=== PATIENT | male | born 1935 | race Caucasian/White ===

== ENCOUNTER 2024-11-29 19:00 | Emergency (ER) | payer MEDICARE, MEDICAID, SELFPAY ==
--- NOTE | ~2024-11-29 | CT_ITS ---
CLINICAL HISTORY: Stroke Protocol CT angiography head and neck with contrast. 3D Postprocessing. 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 Scattered calcified atheromatous plaques throughout the bilateral common carotid arteries. Prominent calcified and noncalcified atheromatous plaque in the carotid bifurcations, on the right resulting in severe greater than 70% stenoses and on the left mild less than 50% stenoses. Short segmental moderate stenoses left distal common carotid artery. Cervical vasculature is patent. Cerebral arteries are patent. No intracranial aneurysms. The visualized thyroid gland is unremarkable. No cervical mass or fluid collection. Mild mucosal thickening left maxillary sinus. Tiny bilateral pulmonary nodules measuring no more than 3 mm. Per Fleischner criteria: Low-risk patients: No routine follow-up required. High-risk patients: Optional CT at 12 months. Multilevel spondylosis with osteophytosis, uncovertebral hypertrophy, facet arthropathy and degenerative disc disease. Motion and streak artifact limit evaluation. Redemonstrated scattered punctate calcifications throughout the right cerebrum with diffuse edema and multifocal masslike lesions, please see prior report. IMPRESSION: No large vessel occlusion. If clinical concern persists consider follow-up MRI. Patent neck CTA. Severe stenoses right carotid bifurcation. This document has been electronically signed by: Alex Garner MD on 11/29/2024 20:18:08
--- NOTE | ~2024-11-29 | CT_ITS ---
CLINICAL HISTORY: Stroke Protocol CT head without contrast Comparison: None provided Findings: Motion and streak artifact limit evaluation. Scattered subcortical and periventricular hypoattenuation, likely in keeping with chronic small vessel ischemic disease. Parenchymal volume loss with compensatory prominence of the ventricles and CSF spaces. Heterogeneous 2 cm solid-appearing mass lesion right parietal lobe. Cystic low-density focus measuring 6.4 x 5.4 cm trans axially in the right frontal lobe extending along the gangliocapsular region. Associated mass effect with leftward midline shift measuring 5 mm at the septum pellucidum. No hydrocephalus at this time. There is diffuse vasogenic edema throughout the right cerebrum. Additional focus of either evolving ischemia or encephalomalacia posterior right frontal lobe near the vertex not well-defined. Regional scattered calcifications which are nonspecific. 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 Superimposed ischemia can not be entirely excluded. Clinical correlation with follow-up brain MRI without and with contrast advised. The visualized paranasal sinuses and mastoid air cells are normal. Possible tiny osteoma in the right frontal sinus. The orbits are unremarkable. There is no acute fracture. IMPRESSION: Masslike foci throughout the right cerebrum with mass effect described, please see above. This document has been electronically signed by: Alex Garner MD on 11/29/2024 19:43:01
--- NOTE | 2024-11-29 19:05 | ECG_ITS ---
Test Reason : ? STROKE Blood Pressure : */* mmHG Vent. Rate : 82 BPM Atrial Rate : 82 BPM P-R Int : 130 ms QRS Dur : 92 ms QT Int : 392 ms P-R-T Axes : 73 -36 66 degrees QTcB Int : 457 ms Sinus rhythm with occasional Premature ventricular complexes Left axis deviation Abnormal ECG No previous ECGs available Referred By: Adrian Arias Electronically Signed By: Jules Hollis
[2024-11-29 19:10] LABS: Prothrombin Time Whole Bld POC 13.9 sec (11.1-13.5); ~PT, ~INR - Anti Coag Clinic 1.2 (0.9-1.1)
--- NOTE | 2024-11-29 19:15 | ED.NEUROSD ---
HPI - Neuro Symptoms/Deficit General Chief Complaint: Stroke Stated Complaint: STROKE ALERT Time Seen by Provider: 11/29/24 19:04 Source: patient, family (Tesha Rodas (HCP) lise @ [phone].), EMS and old records reviewed Mode of arrival: EMS Limitations: altered mental status History of Present Illness ED Provider: DR. Arias HPI Narrative: This is a 89-year-old male with PMHx dementia, schizophrenia, BPH, HLD, CAD, HTN, patient is custodial resident, on able to give a full history at this point, came in for evaluation of left facial droop, slurred speech, left side weakness. History was obtained from his HCP/niece Tesha Rodas at phone number [phone] who confirmed that she visited her uncle on 11/21 noticed that he has left-sided facial droop and slurred speech and left-sided weakness, noticed that he can not use his left side then the knees witnessed focal seizure to his left side only claimed that she notified the staff but no action was taken at this point, HCP not sure his code status never discussed it with him and does not want to make decision now. patient returned today for the above symptoms claiming that is symptoms is worsening since 15:00. Patient on arrival is slurred speech able to answer some questions, with left-sided weakness. Related Data Allergies Allergy/AdvReac Type Severity Reaction Status Date / Time No Known Allergies Allergy Verified 11/29/24 19:27 Review of Systems Review of Systems: Yes Unobtainable due to mental status PMFSH Social History Social History Smoked in Last 30 Days: No Use of substances other than those prescribed or required for medical reasons: No Advance Directives: Yes Advance Directives on File: Yes Advance Directives Date on File: 11/29/24 Do you have a plan to hurt others: No Plan Physical Exam Vital Signs: Vital Signs: Last Vital Signs Temp 98.0 F 11/29/24 19:24 Pulse 66 11/29/24 20:13 Resp 16 11/29/24 20:13 BP 153/69 H 11/29/24 20:13 Pulse Ox 96 11/29/24 20:13 O2 Del Method Room Air 11/29/24 20:13 BMI result Body Mass Index 25.1 Vital signs have been reviewed and appear to be correct. Blood pressure elevated. Heart rate normal. Respiratory rate normal. Temperature normal. Oxygen saturation normal. Appearance: Alert. Oriented X2 (person and place) No acute distress. Head: Normal external exam. Normocephalic. Atraumatic. No Schwartz signs noted. No raccoon eyes noted Eyes: PERRLA. EOMI. Conjunctiva and sclera normal. Eyelids normal. ENT: TM's Normal. Pharynx normal. Uvula midline. Moist mucous membranes. No trismus noted. No drooling noted. No muffled voice noted. Neck: Normal inspection. Neck supple. FROM. No adenopathy. Thyroid Normal. No meningeal signs. No neck mass noted. CVS: Normal heart rate and rhythm. Heart sound normal. No murmurs noted. Pulses normal throughout. Respiratory: No respiratory distress. Painless inspiration. Breath sounds normal. No wheezes/rales/rhonchi noted. Chest nontender. No accessory muscle usage noted or decreased air movement noted. Abdomen: Soft and nontender. Bowel sounds normal in all 4 quadrants. No distention noted. No organomegaly noted. No visible injury noted. Back: No CVA tenderness. Full range of motion noted. Skin: Skin warm and dry. Normal skin color. Normal skin turgor. No rashes/lesions/lacerations noted. Extremities: No lower extremity edema. Extremities exhibit normal range of motion. Extremities nontender. Neuro: Left facial droop, slurred speech, left upper extremity pronator drift, left lower extremity weakness. Course Reevaluation(s) Reevaluation #1: 89-year-old male came in for evaluation of left hemiparesis, left facial droop, and witnessed focal left-sided seizure by his least [address] is revealing right frontal intra parenchymal mass with mild shift to the left side, patient otherwise hemodynamically stable, patient will need neurosurgical service for further evaluation case was discussed with [facility] neurosurgeon coverage PA. Perdomo who declined the transfer because patient is stable and [facility] is closed for transfer. Case discussed with [facility] accepted to ED of the main [place] [facility] by Dr. Doll. I spoke with Tesha rodas/his healthcare proxy who approved the transferred to [facility]. Time: 21:13 Medications Administered Discontinued Medications Generic Name Dose Route Start Last Admin Trade Name Amilcar PRN Reason Stop Dose Admin Iohexol 100 ml 11/29/24 19:25 11/29/24 19:26 Iohexol 350 Mg/Ml 100 Ml Infus..Btl IV 11/29/24 19:26 70 ml ONCE ONE Administration Medical Decision Making Differential Diagnosis Differential Diagnoses: The differential diagnosis associated with the presentation includes (Hemorrhagic stroke, ischemic stroke, intraparenchymal mass, electrolyte derangement, severe anemia.) Admission/Observation Consideration of admission/observation: Escalation of care including admission/observation considered Lab Data MDM Lab Attestation statement: I reviewed the patient's lab results. 11/29/24 19:33 11/29/24 19:33 Labs: Lab Results 11/29/24 11/29/24 Range/Units 19:04 19:33 WBC 6.8 (4.8-10.8) X10*3/uL RBC 4.22 L (4.60-5.80) X10*6/uL Hgb 13.7 L (14.0-18.0) g/dl Hct 39.2 L (42.0-52.0) % MCV 92.9 (80.0-98.0) fL MCH 32.5 (27.0-33.0) pg MCHC 34.9 (31.0-36.0) g/dl RDW 12.8 (11.0-16.0) % Plt Count 168 (160-400) X10*3/uL MPV 9.6 (9.4-12.4) fL Immature Gran % (Auto) 0.3 (0.0-0.4) % Neut % (Auto) 61.2 (45-73) % Lymph % (Auto) 23.0 (20-40) % [place] % (Auto) 12.2 H (2-11) % Eos % (Auto) 2.9 (0-4) % Baso % (Auto) 0.4 (0-2) % Lymph # (Auto) 1.6 (1.2-4.9) X10*3/uL [place] # (Auto) 0.8 (0.1-1.2) X10*3/uL Eos # (Auto) 0.2 (0.0-0.4) X10*3/uL Baso # (Auto) 0.0 (0.0-0.2) X10*3/uL Abs Immat Gran (auto) 0.02 (0.00-0.03) X10*3/uL Absolute Neuts (auto) 4.2 (2.0-8.3) x10*3/uL Absolute Nucleated RBC 0.000 (0.0-0.012) X10*3/uL Nucleated RBC % (auto) 0.0 (0.0-0.2) /100WBC PT 12.9 H (10.9-12.4) SEC Whole Blood PT 13.9 H (11.1-13.5) sec INR 1.1 (0.9-1.1) Whole Blood INR 1.2 H (0.9-1.1) APTT 28.0 (26.7-34.1) SEC Sodium 138 (135-145) mmol/L Potassium 4.3 (3.3-5.1) mmol/L Chloride 105 (96-108) mmol/L Carbon Dioxide 23 (22-29) mmol/L Anion Gap 14 (12-20) BUN 30 H (9-16) mg/dL Creatinine 1.13 (0.5-1.4) mg/dL Estim Creat Clear Calc 37.8 Estimated GFR > 60 Random Glucose 105 (60-115) mg/dL Calcium 9.0 (8.4-10.2) mg/dL Troponin I High Sens 9.2 (<3.5-35.0) ng/L Triglycerides 70 (<150) mg/dL Cholesterol 141 (<200) mg/dL LDL Cholesterol, Calc 85 (<100) mg/dL HDL Cholesterol 42 (>40) mg/dL Independent Interpretation I performed an independent interpretation of an: CT Scan (CT head/CTA:Masslike foci throughout the right cerebrum with mass effect described, please see above.) Radiology Impression Discussion of test interpretation with radiology: I have reviewed the radiologist's reading. NIH Stroke Scale Time: 19:23 Level of Consciousness: Alert Level of Consciousness Questions: Answers both questions correctly Level of Consciousness Commands: Performs both tasks correctly Best Gaze: Normal Visual: No visual loss Facial Palsy: Minor paralyis Motor Arm (Right): No drift Motor Arm (Left): Drift Motor Leg (Right): No drift Motor Leg (Left): Drift Limb Ataxia: Absent Sensory: Normal Best Language: Mild to moderate aphasia Dysarthia: Normal Extinction and Inattention: No abnormality Score: 4 Critical Care Time Critical Care Time Critical Care Time: Yes Total Critical Care Time: 40 Attestation: The patient was critically ill with a high probability of imminent or life-threatening deterioration. I spent greater than 40 minutes of discontinuous time evaluating the patient, delivering critical care at the bedside, discussing evaluating data with consultants. Critical care time does not include time spent performing separately billable procedures or teaching. Time spent performing critical care was 60 minutes. Discharge Plan Discharge Clinical Impression: Frontal mass of brain Patient Disposition: [facility] Transfer Details: [facility] ED. Print Language: Gabonese
[2024-11-29 19:24] VITALS: BP 166/64; BP 176/110; PULSE 78; PULSE 96; RESP 16; TEMP 36.7; O2SAT 96; O2SAT 98; BMI 25.1
[2024-11-29] MEDS: iohexoL 350 MG/ML 100 ML INFUS..BTL IV (19:26)
[2024-11-29 19:40] LABS: MANUAL DIFF FLAG NO
[2024-11-29 19:43] LABS: Hematocrit 39.2 % (42.0-52.0); Hemoglobin 13.7 g/dl (14.0-18.0); Imm Gran Abs Auto 0.02 X10*3/uL (0.00-0.03); Imm Gran Pct Auto 0.3 % (0.0-0.4); Lymphocytes Absolute Auto 1.6 X10*3/uL (1.2-4.9); Mean Corpuscular HGB Conc 34.9 g/dl (31.0-36.0); Mean Corpuscular Hemoglobin 32.5 pg (27.0-33.0); Mean Corpuscular Volume 92.9 fL (80.0-98.0); NRBC Abs Auto 0.000 X10*3/uL (0.0-0.012); NRBC Pct Auto 0.0 /100WBC (0.0-0.2); Platelet Count 168 X10*3/uL (160-400); Red Blood Count 4.22 X10*6/uL (4.60-5.80); White Blood Count 6.8 X10*3/uL (4.8-10.8)
[2024-11-29 19:58] LABS: Anion Gap 14 (12-20); Blood Urea Nitrogen 30 mg/dL (9-16); Calcium 9.0 mg/dL (8.4-10.2); Carbon Dioxide 23 mmol/L (22-29); Chloride 105 mmol/L (96-108); Cholesterol 141 mg/dL (<200); Creatinine Clr Calc Pharmacy 37.8; Estimated Glomerular Filt Rate > 60; HDL Cholesterol 42 mg/dL (>40); INTERNATIONAL NORM RATIO 1.1 (0.9-1.1); Partial Thromboplastin Time 28.0 SEC (26.7-34.1); Potassium 4.3 mmol/L (3.3-5.1); Prothrombin Time 12.9 SEC (10.9-12.4); Sodium 138 mmol/L (135-145); Stroke Lab Use COMPLETE; Triglycerides 70 mg/dL (<150)
[2024-11-29 20:06] LABS: Troponin-I High Sensitivity 9.2 ng/L (<3.5-35.0)
[2024-11-29 20:13] VITALS: BP 153/69; PULSE 66; RESP 16; O2SAT 96
--- OUTSIDE RECORDS SUMMARY | 2024-11-29 21:05 | XMS_ITS | Patient Health Record ---
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
--- OUTSIDE RECORDS SUMMARY | 2024-11-29 21:05 | XMS_ITS | Encounter Summary ---
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 Social History Tobacco Use Types Packs/Day Years Used Date Smoking Tobacco: Never Assessed Sex and Gender Information Value Date Recorded Sex Assigned at Not on file Legal Sex Male 8:41 AM EDT Gender Identity Not on file Sexual Orientation Not on file documented as of this encounter Plan of Treatment Not on file documented as of this encounter Procedures Procedure Name Priority Date/Time Associated Diagnosis Comments DRUG ABUSE SCREEN 8A PANEL, URINE Routine 11/25/2024 7:00 AM EDT Encounter for screening examination for other mental health and behavioral disorders Other intermodal dispatcher (current) drug therapy documented in this encounter Results * Drug abuse screen 8a panel, urine (11/25/2024 7:00 AM EDT) Amphetamine Screen, Ur Negative Negative LAB CHEMISTRY METHOD 11/25/2024 12:43 PM EDT [facility] Comment:Certain OTC medicati ons containing ephedrine, phenylephrine, pseudoephedrine and phenylpropanolamine can cause false positive results. Barbiturate Screen, Ur Negative Negative LAB CHEMISTRY METHOD 11/25/2024 12:43 PM EDT [facility] Benzodiazepine Screen, Ur Negative Negative LAB CHEMISTRY METHOD 11/25/2024 12:43 PM EDT [facility] Cocaine Screen, Ur Negative Negative LAB CHEMISTRY METHOD 11/25/2024 12:43 PM EDT [facility] Opiate Screen, Ur Negative Negative LAB CHEMISTRY METHOD 11/25/2024 12:43 PM EDT [facility] Cannabinoid (THC) Screen, Ur Negative Negative LAB CHEMISTRY METHOD 11/25/2024 12:43 PM EDT [facility] Comment:Specimens from patie nts taking pantoprazole sodium (Protonix) have been shown to produce false positive results. Oxycodone Screen, Ur Negative Negative LAB CHEMISTRY METHOD 11/25/2024 12:43 PM EDT [facility] Fentanyl, Ur Negative Negative LAB CHEMISTRY METHOD 11/25/2024 12:43 PM T [facility] Urine Urine specimen obtained by clean catch procedure / Unknown Non-blood Collection / Unknown 11/25/2024 7:00 AM EDT 11/25/2024 9:02 AM EDT Narrative [facility] - 11/25/2024 12:43 PM EDT Assay cutoffs: Amphetamines 1000 ng/mL Barbiturates 200 ng/mL Benzodiazepines 200 ng/mL Cocaine 300 ng/mL Fentanyl 1 ng/mL Opiates 300 ng/mL Oxycodone 100 ng/mL THC 50 ng/mL Semi-quantitative assay for screening purposes only. Unconfirmed screening result should not be used for non-medical purposes. *ALTERNATE METHOD CONFIRMATION DONE UPON REQUEST ONLY* us Paco Slade MD LAB URINE ORDERABLES Final Result [facility] [address] [place] [address], documented in this encounter Visit Diagnoses Diagnosis Encounter for screening examination for other mental health and behavioral disorders Other intermodal dispatcher (current) drug therapy documented in this encounter Care Teams Negative Cleaner Relationship Specialty Start Date End Date Paco Slade MD [address] [address] PCP - General Internal Medicine 11/23/24 documented as of this encounter
--- OUTSIDE RECORDS SUMMARY | 2024-11-29 21:05 | XMS_ITS | Encounter Summary ---
Author Organization [facility] Address [address] [place] [address] Care Team Providers Care Radio Message Router Name Role Phone Paco Slade MD Primary Care Provider [phone]- [phone] Encounter Details Date Type Department Care Team (Late st Contact Info) Description 11/23/2024 Lab Requisition [facility] [address] [facility] [place] [address] Paco Slade MD [address] [phone] Anemia, unspecified; Vitamin D deficiency, unspecified; Hyperlipidemia, unspecified Social History Tobacco Use Types Packs/Day Years [...] Procedure Name Priority Date/Time Associated Diagnosis Comments LIPID PANEL WITH REFLEX TO DIRECT LDL Routine 11/23/2024 7:36 AM EDT Anemia, unspecified Vitamin D deficiency, unspecified Hyperlipidemia, unspecified VITAMIN D 25 HYDROXY Routine 11/23/2024 7:36 AM EDT Anemia, unspecified Vitamin D deficiency, unspecified Hyperlipidemia, unspecified COMPLETE BLOOD COUNT Routine 11/23/2024 7:36 AM EDT Anemia, unspecified Vitamin D deficiency, unspecified Hyperlipidemia, unspecified COMPREHENSIVE METABOLIC PANEL Routine 11/23/2024 7:36 AM EDT Anemia, unspecified Vitamin D deficiency, unspecified Hyperlipidemia, unspecified documented in this encounter Results * Vitamin D 25 hydroxy (11/23/2024 7:36 AM EDT) Vit D, 25-Hydroxy 47.8 30.0 - 80.0 ng/mL LAB CHEMISTRY METHOD 11/23/2024 10:12 AM T [facility] Blood Venous blood specimen / Unknown Venipuncture / Unknown 11/23/2024 7:36 AM EDT 11/23/2024 8:46 AM EDT us Paco Slade MD LAB BLOOD ORDERABLES Final Result [facility] [address] [place] [address], [place] [phone] * Lipid panel with reflex to direct LDL (11/23/2024 7:36 AM EDT) Cholesterol 124 0 - 200 mg/dL LAB CHEMISTRY METHOD 11/23/2024 9:[address] [facility] Triglycerides 60 0 - 150 mg/dL LAB CHEMISTRY METHOD 11/23/2024 9:[address] [facility] HDL 54 >=40 mg/dL LAB CHEMISTRY METHOD 11/23/2024 9:[address] [facility] LDL Calculated 58 0 - 100 mg/dL LAB CHEMISTRY METHOD 11/23/2024 9:[address] [facility] Comment:Estimated LDL Calcul ated using equation: Total cholesterol - HDL cholesterol - (Triglycerides/5) VLDL Cholesterol Sean 12 mg/dL LAB CHEMISTRY METHOD 11/23/2024 9:[address] [facility] Non HDL Chol. (LDL+VLDL) 70 <145 mg/dL LAB CHEMISTRY METHOD 11/23/2024 9:[address] [facility] Chol/HDL Ratio 2.3 0.0 - 4.4 LAB CHEMISTRY METHOD 11/23/2024 9:[address] [facility] Blood Venous blood specimen / Unknown Venipuncture / Unknown 11/23/2024 7:36 AM EDT 11/23/2024 8:46 AM EDT Paco Slade MD LAB BLOOD ORDERABLES Final Result [facility] [address] [place] [address], [place] [phone] * (ABNORMAL) Comprehensive metabolic panel (11/23/2024 7:36 AM EDT) Sodium 137 133 - 145 mmol/L LAB CHEMISTRY METHOD 11/23/2024 9:[address] [facility] Potassium 3.9 3.5 - 5.5 mmol/L LAB CHEMISTRY METHOD 11/23/2024 9:[address] [facility] Chloride 103 96 - 110 mmol/L LAB CHEMISTRY METHOD 11/23/2024 9:[address] [facility] CO2 28 21 - 32 mmol/L LAB CHEMISTRY METHOD 11/23/2024 9:[address] [facility] Anion Gap 6 3 - 11 LAB CHEMISTRY METHOD 11/23/2024 9:[address] [facility] Glucose 129(H) 70 - 100 mg/dL LAB CHEMISTRY METHOD 11/23/2024 9:[address] [facility] BUN 25 5 - 25 mg/dL LAB CHEMISTRY METHOD 11/23/2024 9:[address] [facility] Creatinine 0.85 0.70 - 1.30 mg/dL LAB CHEMISTRY METHOD 11/23/2024 9:[address] [facility] eGFR 84 >=60 mL/min/1. 73m2 LAB CHEMISTRY METHOD 11/23/2024 9:[address] [facility] Comment:Calculation based on the Chronic Kidney Disease Epidemiology Collaboration (CKD-EPI) equation refit without adjustment for race. BUN/Creatinine Ratio 29.4 LAB CHEMISTRY METHOD 11/23/2024 9:[address] [facility] Calcium 8.7 8.5 - 10.5 mg/dL LAB CHEMISTRY METHOD 11/23/2024 9:[address] [facility] AST (SGOT) 39 10 - 42 unit/L LAB CHEMISTRY METHOD 11/23/2024 9:[address] [facility] ALT (SGPT) 52 10 - 60 unit/L LAB CHEMISTRY METHOD 11/23/2024 9:[address] [facility] Alkaline Phosphatase 46 42 - 121 unit/L LAB CHEMISTRY METHOD 11/23/2024 9:[address] [facility] Total Protein 6.7 6.0 - 8.0 g/dL LAB CHEMISTRY METHOD 11/23/2024 9:[address] [facility] Albumin 3.7 3.2 - 5.0 g/dL LAB CHEMISTRY METHOD 11/23/2024 9:[address] [facility] Total Bilirubin 0.7 0.0 - 1.4 mg/dL LAB CHEMISTRY METHOD 11/23/2024 9:[address] [facility] Blood Venous blood specimen / Unknown Venipuncture / Unknown 11/23/2024 7:36 AM EDT 11/23/2024 8:46 AM EDT Paco Slade MD LAB BLOOD ORDERABLES Final Result [facility] [address] [place] [address], * (ABNORMAL) Complete blood count (11/23/2024 7:36 AM EDT) WBC 7.8 4.8 - 10.8 K/[facility] HEMETOLOGY [facility] RBC 4.50 4.50 - 5.50 M/[facility] LAB HEMETOLOGY METHOD 11/23/2024 9:[address] [facility] Hemoglobin 14.4 13.5 - 17.5 g/dL LAB HEMETOLOGY METHOD 11/23/2024 9:[address] [facility] Hematocrit 43.3 42.0 - 54.0 % LAB HEMETOLOGY METHOD 11/23/2024 9:[address] [facility] MCV 96.9 79.0 - 98.0 FL LAB HEMETOLOGY METHOD 11/23/2024 9:[address] [facility] MCH 32.2(H) 27.0 - 32.0 pcg LAB HEMETOLOGY METHOD 11/23/2024 9:[address] [facility] MCHC 33.3 32.0 - 37.0 g/dL LAB HEMETOLOGY METHOD 11/23/2024 9:[address] [facility] RDW 12.8 11.0 - 15.0 % LAB HEMETOLOGY METHOD 11/23/2024 9:[address] [facility] Platelets 197 130 - 400 K/mcL LAB HEMETOLOGY METHOD 11/23/2024 9:[address] [facility] MPV 10.3 7.0 - 11.0 [place] LAB HEMETOLOGY METHOD 11/23/2024 9:[address] [facility] NRBC 0.0 <1.0 % LAB HEMETOLOGY METHOD 11/23/2024 9:[address] [facility] NRBC Absolute 0.00 <0.10 K/mcL LAB HEMETOLOGY METHOD 11/23/2024 9:[address] [facility] Blood Venous blood specimen / Unknown Venipuncture / Unknown 11/23/2024 7:36 AM EDT 11/23/2024 8:46 AM EDT Paco Slade MD LAB BLOOD ORDERABLES Final Result [facility] [address] [place] [address], documented in this encounter Visit Diagnoses Diagnosis Anemia, unspecified Vitamin D deficiency, unspecified Hyperlipidemia, unspecified documented in this encounter Care Teams Radio Message Router Relationship Specialty Start Date End Date Paco Slade MD [address] [place] [phone] PCP - General Internal Medicine 11/23/24 documented as of this encounter
--- OUTSIDE RECORDS SUMMARY | 2024-11-29 21:05 | XMS_ITS | Clinical Summary ---
Author Organization [address] [facility] Address [address] [place] [address] Phone Care Team Providers Care Technology Teacher Name Role Phone Paco Slade MD Primary Care Provider [phone] Encounters Date Type Department Care Team Description 11/25/2024 Lab Requisition [facility] [address] [place] [address] Paco Slade MD Encounter for screening examination for other mental health and behavioral disorders; Other salvage determiner (current) drug therapy 11/23/2024 Lab Requisition [facility] [address] [place] [address] Paco Slade MD Anemia, unspecified; Vitamin D deficiency, unspecified; Hyperlipidemia, unspecified from Last 3 Months Social History Tobacco Use Types Packs/Day Years Used Date Smoking Tobacco: Never Assessed Sex and Gender Information Value Date Recorded Sex Assigned at Not on file Legal Sex Male 8:41 AM EDT Gender Identity Not on file Sexual Orientation Not on file Plan of Treatment Health Maintenance Due Date Last Done Comments DTaP,Tdap,and Td Vaccines (1 - Tdap) 1954 Pneumococcal Vaccine: 50+ Ye ars (1 of 1 - PCV) 1986 Zoster Vaccines (1 of 2) 1986 RSV Immunization Adult Patie nts (1 - 1-dose 75+ series) 2011 COVID-19 Vaccine ( - 2023-2 5 season) 2023 Depression Screening 03/30/2024 Falls Risk Assessment 11/23/2024 Medicare Annual Wellness Visit 11/23/2024 Social Influencers of Health Screening 11/23/2024 Influenza Vaccine (#1) 2024 Cholesterol Screening (Lipid Panel) 11/23/2029 11/23/2024 HIB Vaccines Aged Out No longer eligi ble based on patient's age to complete this topic HPV Vaccines Aged Out No longer eligi ble based on patient's age to complete this topic Hepatitis A Vaccines Aged Out No long er eligible based on patient's age to complete this topic Hepatitis B Vaccines Aged Out No long er eligible based on patient's age to complete this topic IPV Vaccines Aged Out No longer eligi ble based on patient's age to complete this topic MMR Vaccines Aged Out No longer eligi ble based on patient's age to complete this topic Meningococcal ACWY Vaccine Aged Out N o longer eligible based on patient's age to complete this topic Meningococcal B Vaccine Aged Out No l onger eligible based on patient's age to complete this topic RSV Immunization Patients Un svitlana 20 months Aged Out No longer eligible b ased on patient's age to complete this topic Varicella Vaccines Aged Out No longer eligible based on patient's age to complete this topic Procedures Procedure Name Priority Date/Time Associated Diagnosis Comments DRUG ABUSE SCREEN 8A PANEL, URINE Routine 11/25/2024 7:00 AM EDT Encounter for screening examination for other mental health and behavioral disorders Other salvage determiner (current) drug therapy VITAMIN D 25 HYDROXY Routine 11/23/2024 7:36 AM EDT Anemia, unspecified Vitamin D deficiency, unspecified Hyperlipidemia, unspecified LIPID PANEL WITH REFLEX TO DIRECT LDL Routine 11/23/2024 7:36 AM EDT Anemia, unspecified Vitamin D deficiency, unspecified Hyperlipidemia, unspecified COMPREHENSIVE METABOLIC PANEL Routine 11/23/2024 7:36 AM EDT Anemia, unspecified Vitamin D deficiency, unspecified Hyperlipidemia, unspecified COMPLETE BLOOD COUNT Routine 11/23/2024 7:36 AM EDT Anemia, unspecified Vitamin D deficiency, unspecified Hyperlipidemia, unspecified from Last 3 Months Results * Drug abuse screen 8a panel, urine (11/25/2024 7:00 AM EDT) Amphetamine Screen, Ur Negative Negative LAB CHEMISTRY METHOD 11/25/2024 12:43 PM EDT [facility] Comment:Certain OTC medicati ons containing ephedrine, phenylephrine, pseudoephedrine and phenylpropanolamine can cause false positive results. Barbiturate Screen, Ur Negative Negative LAB CHEMISTRY METHOD 11/25/2024 12:43 PM EDT [facility] Benzodiazepine Screen, Ur Negative Negative LAB CHEMISTRY METHOD 11/25/2024 12:43 PM EDT [facility] Cocaine Screen, Ur Negative Negative LAB CHEMISTRY METHOD 11/25/2024 12:43 PM EDT [facility] Opiate Screen, Ur Negative Negative LAB CHEMISTRY METHOD 11/25/2024 12:43 PM EDT [facility] Cannabinoid (THC) Screen, Ur Negative Negative LAB CHEMISTRY METHOD 11/25/2024 12:43 PM EDT [facility] Comment:Specimens from patie nts taking pantoprazole sodium (Protonix) have been shown to produce false positive results. Oxycodone Screen, Ur Negative Negative LAB CHEMISTRY METHOD 11/25/2024 12:43 PM EDT [facility] Fentanyl, Ur Negative Negative LAB CHEMISTRY METHOD 11/25/2024 12:43 PM EDT [facility] Urine Urine specimen obtained by clean catch procedure / Unknown Non-blood Collection / Unknown 11/25/2024 7:00 AM EDT 11/25/2024 9:02 AM EDT Narrative [facility] - 11/25/2024 12:43 PM EDT Assay [...] Slade MD LAB URINE ORDERABLES Final Result [facility] [address] [place] [address], [place] [phone] * Lipid panel with reflex to direct LDL (11/23/2024 7:36 AM EDT) Cholesterol 124 0 - 200 mg/dL LAB CHEMISTRY METHOD 11/23/2024 9:25 AM EDT [facility] Triglycerides 60 0 - 150 mg/dL LAB CHEMISTRY METHOD 11/23/2024 9:25 AM EDT [facility] HDL 54 >=40 mg/dL [facility] Calculated 58 0 - 100 mg/dL LAB CHEMISTRY METHOD 11/23/2024 9:25 AM T [facility] Comment:Estimated LDL Calcul ated using equation: Total cholesterol - HDL cholesterol - (Triglycerides/5) VLDL Cholesterol Sean 12 mg/dL LAB CHEMISTRY METHOD 11/23/2024 9:25 AM EDT [facility] Non HDL Chol. (LDL+VLDL) 70 <145 mg/dL LAB CHEMISTRY METHOD 11/23/2024 9:25 AM [facility] Chol/HDL Ratio 2.3 0.0 - 4.4 LAB CHEMISTRY METHOD 11/23/2024 9:25 AM [facility] Blood Venous blood specimen / Unknown Venipuncture / Unknown 11/23/2024 7:36 AM EDT 11/23/2024 8:46 AM EDT us Paco Slade MD LAB BLOOD ORDERABLES Final Result [facility] [address] [place] [address], [place] [phone] * Vitamin D 25 hydroxy (11/23/2024 7:36 AM EDT) Vit D, 25-Hydroxy 47.8 30.0 - 80.0 ng/mL LAB CHEMISTRY METHOD 11/23/2024 10:12 AM EDT [facility] Blood Venous blood specimen / Unknown Venipuncture / Unknown 11/23/2024 7:36 AM EDT 11/23/2024 8:46 AM EDT us Paco Slade MD LAB BLOOD ORDERABLES Final Result [facility] [address] [place] [address], * (ABNORMAL) Complete blood count (11/23/2024 7:36 AM EDT) WBC 7.8 4.8 - 10.8 K/mcL LAB HEMETOLOGY METHOD 11/23/2024 9:01 AM [facility] RBC 4.50 4.50 - 5.50 M/[facility] LAB HEMETOLOGY METHOD 11/23/2024 9:01 AM [facility] Hemoglobin 14.4 13.5 - 17.5 g/dL LAB HEMETOLOGY METHOD 11/23/2024 9:01 AM [facility] Hematocrit 43.3 42.0 - 54.0 % LAB HEMETOLOGY METHOD 11/23/2024 9:01 AM [facility] MCV 96.9 79.0 - 98.0 FL LAB HEMETOLOGY METHOD 11/23/2024 9:01 AM [facility] MCH 32.2(H) 27.0 - 32.0 pcg LAB HEMETOLOGY METHOD 11/23/2024 9:01 AM [facility] MCHC 33.3 32.0 - 37.0 g/dL LAB HEMETOLOGY METHOD 11/23/2024 9:01 AM [facility] RDW 12.8 11.0 - 15.0 % LAB HEMETOLOGY METHOD 11/23/2024 9:01 AM [facility] Platelets 197 130 - 400 K/mcL LAB HEMETOLOGY METHOD 11/23/2024 9:01 AM EDT [facility] MPV 10.3 7.0 - 11.0 FL LAB HEMETOLOGY METHOD 11/23/2024 9:01 AM EDT [facility] NRBC 0.0 <1.0 % LAB HEMETOLOGY METHOD 11/23/2024 9:01 AM EDT [facility] NRBC Absolute 0.00 <0.10 K/mcL LAB HEMETOLOGY METHOD 11/23/2024 9:01 AM EDT [facility] Blood Venous blood specimen / Unknown Venipuncture / Unknown 11/23/2024 7:36 AM EDT 11/23/2024 8:46 AM EDT Paco Slade MD LAB BLOOD ORDERABLES Final Result [facility] [address] [place] [address], [place] [phone] * (ABNORMAL) Comprehensive metabolic panel (11/23/2024 7:36 AM EDT) Sodium 137 133 - 145 mmol/L LAB CHEMISTRY METHOD 11/23/2024 9:25 AM [facility] Potassium 3.9 3.5 - 5.5 mmol/L LAB CHEMISTRY METHOD 11/23/2024 9:25 AM [facility] Chloride 103 96 - 110 mmol/L LAB CHEMISTRY METHOD 11/23/2024 9:25 AM [facility] CO2 28 21 - 32 mmol/L LAB CHEMISTRY METHOD 11/23/2024 9:25 AM [facility] Anion Gap 6 3 - 11 LAB CHEMISTRY METHOD 11/23/2024 9:25 AM [facility] Glucose 129(H) 70 - 100 mg/dL LAB CHEMISTRY METHOD 11/23/2024 9:25 AM [facility] BUN 25 5 - 25 mg/dL LAB CHEMISTRY METHOD 11/23/2024 9:25 AM [facility] Creatinine 0.85 0.70 - 1.30 mg/dL LAB CHEMISTRY METHOD 11/23/2024 9:25 AM [facility] eGFR 84 >=60 mL/min/1. 73m2 LAB CHEMISTRY METHOD 11/23/2024 9:25 AM [facility] Comment:Calculation based on the Chronic Kidney Disease Epidemiology Collaboration (CKD-EPI) equation refit without adjustment for race. BUN/Creatinine Ratio 29.4 LAB CHEMISTRY METHOD 11/23/2024 9:25 AM [facility] Calcium 8.7 8.5 - 10.5 mg/dL LAB CHEMISTRY METHOD 11/23/2024 9:25 AM [facility] AST (SGOT) 39 10 - 42 unit/L LAB CHEMISTRY METHOD 11/23/2024 9:25 AM [facility] ALT (SGPT) 52 10 - 60 unit/L LAB CHEMISTRY METHOD 11/23/2024 9:25 AM [facility] Alkaline Phosphatase 46 42 - 121 unit/L LAB CHEMISTRY METHOD 11/23/2024 9:25 AM [facility] Total Protein 6.7 6.0 - 8.0 g/dL LAB CHEMISTRY METHOD 11/23/2024 9:25 AM [facility] Albumin 3.7 3.2 - 5.0 g/dL LAB CHEMISTRY METHOD 11/23/2024 9:25 AM [facility] Total Bilirubin 0.7 0.0 - 1.4 mg/dL LAB CHEMISTRY METHOD 11/23/2024 9:25 AM [facility] Blood Venous blood specimen / Unknown Venipuncture / Unknown 11/23/2024 7:36 AM EDT 11/23/2024 8:46 AM EDT us Paco Slade MD LAB BLOOD ORDERABLES Final Result [facility] [address] [place] [address], [place] [phone] from Last 3 Months Insurance MEDICARE MEDICAID - [place] Care Teams Technology Teacher Relationship Specialty Start Date End Date Paco Slade MD [address] [place] [phone] PCP - General Internal Medicine 11/23/24
[2024-11-29 21:54] VITALS: BP 153/69; PULSE 66; RESP 16; TEMP 36.7; O2SAT 96
[2024-11-30 09:31] LABS: Glucose, Whole Blood 104 mg/dL (60-115)
== END 2024-11-29 21:55 | disposition short-term general hospital (02) ==
PROVIDERS: Emergency Provider Emergency Medicine; PCP Internal Medicine Rheumatology
DX: G93.9 Disorder of brain, unspecified (principal); R29.704 NIHSS score 4; R29.810 Facial weakness; R47.81 Slurred speech; R53.1 Weakness; R47.01 Aphasia; F03.90 Unspecified dementia, unspecified severity, without behavioral disturbance, psychotic disturbance, mood disturbance, and anxiety; I10 Essential (primary) hypertension; I25.10 Atherosclerotic heart disease of native coronary artery without angina pectoris
CPT/HCPCS: 36415; 70450; 70496; 70498; 80048; 80061; 82947; 84484; 85025; 85610; 85730; 93005; 99285; Q9967

== ENCOUNTER → 2024-11-29 19:05 | Outpatient (BNV) | payer MEDICAID, SELFPAY | PROVIDERS: Emergency Provider Emergency Medicine; Visit Provider Radiology Diagnostic Radiology | DX: I65.21 Occlusion and stenosis of right carotid artery (principal) | CPT/HCPCS: 70450; 70496; 70498 ==

== ENCOUNTER → 2024-11-29 19:05 | Outpatient (BNV) | payer MEDICARE, MEDICAID, SELFPAY | PROVIDERS: Emergency Provider Emergency Medicine; PCP Internal Medicine Rheumatology; Visit Provider Internal Medicine Cardiovascular Disease | DX: I49.3 Ventricular premature depolarization (principal) | CPT/HCPCS: 93010 ==